=== PATIENT | female | born 1950 | race Caucasian/White ===

== ENCOUNTER → 2020-09-01 | Outpatient (CLI) | payer BC | END | disposition home or self-care (01) | LOC: COVID19 11:42 | PROVIDERS: ATTEND Internal Medicine Critical Care Medicine | DX: U07.1 COVID-19 (principal) ==

== ENCOUNTER → 2021-03-02 | Outpatient (CLI) | payer BC | END | disposition home or self-care (01) | LOC: RAD 07:18 | PROVIDERS: ATTEND Physician Assistant | DX: M85.89 Other specified disorders of bone density and structure, multiple sites (principal) ==

== ENCOUNTER → 2022-02-22 | Day surgery (SDC) | payer BC ==
[~2022-02-22] VITALS: Ht 158.7 cm; Wt 72.6 kg
[~2022-02-22] MED LIST: ALIGN4 M1 PO; AZELASTINE NAS; B COMPLEX1 EACH PO; BREO ELLIPTA 21 EACH INH; CALTRATE 600+D1 EAC1 PO; CO Q10100 MG PO; CRESTOR5 MG PO; FLONASE ALLERG9.9 ML NAS; NEXIUM20 M1 PO; ONE DAILY FOR1 EAC3 PO; PERCOCET 5-3251 EACH PO; SINGULAIR10 M1 PO; VITAMIN B121000 MC1 PO; VITAMIN C250 M2 PO; VITAMIN D350 MCG PO; XYZAL5 M1 PO
[2022-02-25 06:57] VITALS: BP 120/78
[2022-02-25 07:59] VITALS: BP 126/66
[2022-02-25 08:14] VITALS: BP 125/65
[2022-02-25 08:28] VITALS: BP 123/78
== END | disposition home or self-care (01) ==
LOC: SDC 00:01
PROVIDERS: ATTEND Surgery
DX: D17.1 Benign lipomatous neoplasm of skin and subcutaneous tissue of trunk (principal); I10 Essential (primary) hypertension; K21.9 Gastro-esophageal reflux disease without esophagitis; F41.9 Anxiety disorder, unspecified; Z88.8 Allergy status to other drugs, medicaments and biological substances; F32.9 Major depressive disorder, single episode, unspecified; Z79.899 Other long term (current) drug therapy

== ENCOUNTER → 2022-12-11 | Outpatient (CLI) | payer MEDICARE ==
[2022-12-11 09:12] LABS: BASO # 0.1 10*3/uL (0.0-0.1); BASO % 0.1 % (0.0-1.0); HEMATOCRIT 42.7 % (37.0-47.0); LYMPH # 113.2 10*3/uL (1.3-4.4); LYMPH % 95.2 % (27.0-41.0); MEAN CELL VOLUME 99.3 fl (81.0-99.0); MEAN CORPUSCULAR HGB 29.5 pg (27.0-31.0); MEAN CORPUSCULAR HGB CONC 29.7 g/dl (33.0-37.0); MEAN PLATELET VOLUME 8.9 fl (9.6-12.3); MONO # 0.9 10*3/uL (0.1-1.0); MONO % 0.7 % (3.0-9.0); NEUT # 4.6 10*3/uL (2.3-7.9); NEUT % 3.9 % (47.0-73.0); PLATELET COUNT AUTOMATED 145 10*3/uL (130-400); RED CELL DISTRI WIDTH 14.8 % (0-14.5)
[2022-12-11 10:22] LABS: BLASTS 3 % (0-0); PLATELET SUFFICIENCY NORMAL (NORMAL); TOTAL CELLS COUNTED 100 #CELLS
[2022-12-11 10:31] LABS: WHITE BLOOD COUNT 118.9 10*3/uL (4.8-10.8)
== END | disposition home or self-care (01) ==
LOC: LAB 08:50
PROVIDERS: ATTEND Internal Medicine Critical Care Medicine
DX: Z79.899 Other long term (current) drug therapy (principal)

== ENCOUNTER 2023-02-15 14:48 | Emergency (ER) | payer MEDICARE ==
[~2023-02-15] VITALS: Ht 157.4 cm; Wt 74.4 kg
[2023-02-15 15:02] VITALS: BP 180/153
[2023-02-15 15:26] LABS: MEAN CORPUSCULAR HGB 30.4 pg (27.0-31.0); MEAN CORPUSCULAR HGB CONC 30.8 g/dl (33.0-37.0); MEAN PLATELET VOLUME 9.3 fl (9.6-12.3); PLATELET COUNT AUTOMATED 195 10*3/uL (130-400); RED BLOOD COUNT 4.04 10*6/uL (4.10-5.10)
[2023-02-15] MEDS ORDERED: ALLOPURINOL300 MG PO (15:30)
[2023-02-15 15:36] LABS: ACT PARTIAL THROMBO TIME 25.1 SECONDS (20.0-32.1); MANUAL DIFF REFLEX YES; WHITE BLOOD COUNT 124.3 10*3/uL (4.8-10.8)
[2023-02-15 15:41] LABS: ALKALINE PHOSPHATASE 75 U/L (46-116); BUN 8 mg/dl (9-23); CHLORIDE 108 mmol/L (98-107); POTASSIUM 3.5 mmol/L (3.4-5.1); SGPT/ALT 25 U/L (10-49); TOTAL PROTEIN 7.1 gm/dL (6.0-8.0)
[2023-02-15 16:28] LABS: PLATELET SUFFICIENCY NORMAL (NORMAL); TOTAL CELLS COUNTED 100 #CELLS
[2023-02-15 16:32] LABS: OVALOCYTES FEW
[2023-02-15] MEDS ORDERED: ZITHROMAX250 MG PO (19:12)
== END 2023-02-15 19:42 | disposition home or self-care (01) ==
LOC: ED 14:48
PROVIDERS: Internal Medicine
DX: J45.909 Unspecified asthma, uncomplicated (principal); Z88.1 Allergy status to other antibiotic agents; Z91.041 Radiographic dye allergy status; Z79.899 Other long term (current) drug therapy; Z90.89 Acquired absence of other organs

== ENCOUNTER → 2023-02-23 | Outpatient (CLI) | payer MEDICARE ==
[~2023-02-23] MED LIST changes: +ALLOPURINOL300 MG PO; +ZITHROMAX250 MG PO
== END | disposition home or self-care (01) ==
LOC: RESCLI 01:31
PROVIDERS: ATTEND Student in an Organized Health Care Education/Training Program
DX: J45.909 Unspecified asthma, uncomplicated (principal); C91.10 Chronic lymphocytic leukemia of B-cell type not having achieved remission; I10 Essential (primary) hypertension; K21.9 Gastro-esophageal reflux disease without esophagitis; M85.80 Other specified disorders of bone density and structure, unspecified site; F41.9 Anxiety disorder, unspecified; E78.5 Hyperlipidemia, unspecified; Z91.09 Other allergy status, other than to drugs and biological substances; Z98.890 Other specified postprocedural states; Z82.49 Family history of ischemic heart disease and other diseases of the circulatory system; Z79.899 Other long term (current) drug therapy

== ENCOUNTER 2023-04-20 01:31 | Emergency (ER) | payer MEDICARE ==
[2023-04-20 01:43] VITALS: BP 183/85
[2023-04-20] MEDS ORDERED: ZITHROMAX250 MG PO (02:07)
[2023-04-20] MEDS ORDERED: PREDNISONE10 M1 PO (02:07)
== END 2023-04-20 02:40 | disposition home or self-care (01) ==
LOC: ED 01:31
DX: J40 Bronchitis, not specified as acute or chronic (principal); J04.0 Acute laryngitis; I10 Essential (primary) hypertension; K21.9 Gastro-esophageal reflux disease without esophagitis; F41.9 Anxiety disorder, unspecified; F32.A Depression, unspecified; Z91.041 Radiographic dye allergy status; Z88.1 Allergy status to other antibiotic agents; Z98.890 Other specified postprocedural states

== ENCOUNTER → 2024-03-07 | Outpatient (CLI) | payer MEDICARE ==
[~2024-03-07] MED LIST changes: +PREDNISONE10 M1 PO
== END | disposition home or self-care (01) ==
LOC: MAMMO 11:00
PROVIDERS: ATTEND Physician Assistant
DX: Z12.31 Encounter for screening mammogram for malignant neoplasm of breast (principal)

== ENCOUNTER → 2024-11-15 | Outpatient (CLI) | payer MEDICARE | END | disposition home or self-care (01) | LOC: CT 09:17 | PROVIDERS: ATTEND Physician Assistant | DX: M47.812 Spondylosis without myelopathy or radiculopathy, cervical region (principal); M54.2 Cervicalgia; M43.12 Spondylolisthesis, cervical region; M48.02 Spinal stenosis, cervical region; G93.89 Other specified disorders of brain; W19.XXXA Unspecified fall, initial encounter; Y93.89 Activity, other specified; Y92.89 Other specified places as the place of occurrence of the external cause; Y99.8 Other external cause status ==

== ENCOUNTER → 2025-04-03 | Outpatient (CLI) | payer MEDICARE | END | disposition home or self-care (01) | LOC: MAMMO 08:22 | PROVIDERS: ATTEND Physician Assistant | DX: Z12.31 Encounter for screening mammogram for malignant neoplasm of breast (principal) ==

== ENCOUNTER → 2025-04-12 | Outpatient (CLI) | payer MEDICARE | END | disposition home or self-care (01) | LOC: RAD 07:32 | PROVIDERS: ATTEND Internal Medicine Critical Care Medicine | DX: R06.02 Shortness of breath (principal); R05.9 Cough, unspecified; R42 Dizziness and giddiness; R09.89 Other specified symptoms and signs involving the circulatory and respiratory systems ==

== ENCOUNTER → 2025-08-15 | Outpatient (CLI) | payer MEDICARE | END | disposition home or self-care (01) | LOC: RAD 09:27 | PROVIDERS: ATTEND Physician Assistant | DX: M81.0 Age-related osteoporosis without current pathological fracture (principal) ==